=== PATIENT | male | born 2000 | race Caucasian/White ===

== ENCOUNTER 2022-06-07 20:15 | Emergency (ER) | payer BC, SELFPAY ==
[2022-06-07 20:21] VITALS: BP 133/80; PULSE 85; RESP 20; TEMP 37.3; O2SAT 98
--- NOTE | 2022-06-07 21:00 | DI.CT_ITS ---
Exam(s) CT ABDOMEN PELVIS W EXAM: CT ABDOMEN PELVIS W CLINICAL HISTORY: lower abdominal pain, hematochezia TECHNIQUE: Imaging Protocol: Axial computed tomography images with coronal and sagittal reformatted images were created and reviewed CONTRAST MATERIAL: Intravenous: Omnipaque 350 Contrast volume:100 mL Oral: No COMPARISON: No exams were available for comparison FINDINGS: There is a mottled enhancement pattern of both the liver and spleen which is likely secondary to bonifacio us and scan timing. ABDOMEN: Lung Bases: Normal where visualized. Liver: Normal density. No measurable mass. Portal, Superior Mesenteric, and Splenic Veins: Unremarkable. Gallbladder and Biliary Tract: No radiodense calculus or dilation. Pancreas: Normal density, no abnormal calcifications or inflammatory process. Spleen: Normal. Adrenals: No masses seen. Kidneys: Normal size, contour and axis. No radiodense stones or obstructive uropathy. No masses seen. Abdominal Aorta: Abdominal portion non-dilated. Bowel: No obstruction or bowel wall thickening. Appendix is unremarkable. Peritoneal Cavity: There is a trace amount of free fluid in the pelvis. No free air. Lymph Nodes: Within normal limits. Bones: Within normal limits for the patient's age. Soft Tissues: Unremarkable. PELVIS: Bladder: Symmetric distention, no gross wall thickening. Reproductive Organs: Unremarkable as visualized. Lymph Nodes: Within normal limits. Bones: Within normal limits for the patient's age. IMPRESSION: 1. Trace amount of free fluid in the pelvis. 2. No evidence of bowel obstruction or inflammation. Normal appendix. RADIATION DOSE DELIVERED: 746.48mGy.cm Total DLP DATA REPOSITORY: All CT scans at this facility are submitted to the National Radiology Data Registry (NRDR) Dose Index Registry (DIR) with the [employer] (ACR). RADIATION OPTIMIZATION: All CT scans at this facility use at least one of these dose optimization te chniques: automated exposure control; mA and/or kV adjustment per patient size (includes targeted exa ms where dose is matched to clinical indication); or iterative reconstruction.
[2022-06-07 21:08] LABS: Abs Immature Grans 0.04 10^3/uL (0.0-0.06); Absolute Basophil Count 0.06 10^3/uL (0.0-0.2); Absolute Eosinophil Count 0.11 10^3/uL (0.0-0.7); Absolute Monocyte Count 0.88 10^3/uL (0.1-0.8); Absolute Neutrophil Count 6.29 10^3/uL (1.2-6.7); Basophils % 0.5; Eosinophils % 0.9; HGB 15.9 g/dL (13.5-17.5); Immature Grans % 0.3; Lymphocytes % 37.4; MCH 31.3 pg (27.0-33.0); MCHC 33.8 % (32.0-36.0); MCV 93 fL (80-95); MPV 10.5 fL (8.0-11.0); Monocytes % 7.5; Neutrophils % 53.4; Platelet Count 268 10^3/uL (130-400); RBC 5.08 10^6/uL (4.36-5.78); RDW 12.1 % (11.8-14.1); RDW-SD 41.8 fL; WBC 11.78 10^3/uL (4.4-10.8)
[2022-06-07 21:09] LABS: Absolute Lymphocyte Count 4.41 10^3/uL (1.2-3.4)
[2022-06-07 21:21] LABS: INR 1.1 (0.9-1.1); PTT Activated 26.5 sec (21.0-27.5)
[2022-06-07 21:22] LABS: ALT 27 U/L (16-63); AST 25 U/L (15-37); Alkaline Phosphatase 55 U/L (46-116); Anion Gap 8.2 mmol/L (3-11); BUN 13 mg/dL (7-18); Bilirubin, Total 1.1 mg/dL (0.2-1.0); CO2 29.8 mmol/L (21.0-32.0); CREATININE 1.2 mg/dL (0.70-1.30); Calcium 9.6 mg/dL (8.5-10.1); Chloride 104 mmol/L (98-107); Estimated GFR 88.24 (mL/min/1.73m2); Glucose 77 mg/dL (74-106); Potassium 3.5 mmol/L (3.5-5.1); Sodium 142 mmol/L (136-145)
--- NOTE | 2022-06-07 21:40 | ED.GENADUL_ITS ---
Discharge Plan Disposition Patient Disposition: Home Condition: Improving Discharge Details Clinical Impression: Bloody diarrhea Primary Care Provider: Teofilo Paredes ED Provider: Michael Winters Home Meds and New Rx's Prescriptions: New ciprofloxacin HCl 500 mg tablet 500 mg PO BID 3 Days Qty: 6 0RF dicyclomine 20 mg tablet 20 mg PO BID PRN (Reason: cramps) 5 Days Qty: 10 0RF Discharge Instructions Instructions: Acute Diarrhea (ED) Additional Instructions: You should consider yourself to have an IV dye contrast allergy as we discussed. Please take antibiotics as prescribed until finished. May use the Bentyl as needed for cramps. We will refer you to the general surgery office for an outpatient consultation. Return to develop a fever, increasing pain, vomiting, or any other acute concerns. Home to rest this evening. Medical Decision Making Otherwise healthy 21-year-old male presents from home with 2 to 3 days of crampy lower abdominal pain development of loose stool and hematochezia. He has not had a fever, no vomiting. He arrives with normal vital signs and is well- appearing. Exam does reveal guaiac positive mucus and lower abdominal tenderness. Consider colitis, diverticulitis, traveler's/complicated diarrhea. Referred for laboratory testing and CT imaging. White blood cell count 11, hematocrit 47, platelets 268. INR is 1.1. Basic chemistries show sodium 142, potassium 3.5, chloride 104, bicarb 29, BUN 13, creatinine 1.2, AST 25, ALT 27, total bili of 1.1. CT imaging obtained. Following administration of IV contrast patient developed itching and a patchy, blanching, erythematous rash on his chest and neck. He was given Benadryl, Solu-Medrol, and Pepcid. I would consider this to be an allergic reaction to IV contrast and the patient was informed of such. Following the contrast reaction the patient was observed. His CT exam reveals trace pelvic free fluid. No other notable findings. Please see the formal report. Given the patient's findings, this is most consistent with a complicated diarrhea. I will treat him with a course of ciprofloxacin. We will refer to general surgery for follow-up and consideration of colonoscopy if symptoms persist. HPI General Mode of arrival: ambulatory . Date/Time Provider Initiated Documentation: 06/07/22 20:16 . Limitations to Documentation: no limitations . Information obtained by: patient . History of Present Illness 21 year old M presents to the emergency department with the chief complaint of Crampy lower abdominal pain for 2 to 3 days with bloody stool, described as moderate, and is localized to the abdomen. Patient reports no radiation. Patient started experiencing this day(s) and it has been intermittent. No relieving factors improve symptom(s), No exacerbating factors reported . Patient notes denies fever/chills, nausea/vomiting and syncope. Patient did receive the following treatments prior to arrival, none Related Data Home Medications Medication Instructions Recorded Confirmed ciprofloxacin HCl 500 mg tablet 500 mg PO BID 3 days #6 tabs 06/07/22 dicyclomine 20 mg tablet 20 mg PO BID PRN cramps 5 days #10 06/07/22 tabs Previous Rx's Medication Instructions Recorded ciprofloxacin HCl 500 mg tablet 500 mg PO BID 3 days #6 tabs 06/07/22 dicyclomine 20 mg tablet 20 mg PO BID PRN cramps 5 days #10 06/07/22 tabs Allergies Allergy/AdvReac Type Severity Reaction Status Date / Time IV Contrast AdvReac Intermediate Uncoded 06/07/22 22:12 General Stated Complaint: GI Bleed LESA: 3 Review of Systems Narrative: 6 systems reviewed and otherwise negative PFSH All Active Problems (Updated 06/07/22 @ 22:31 by Michael Winters MD) Bloody diarrhea (Acute) Social History Smoking/Tobacco Use Status: Never Smoking risk assessment performed?: Yes Alcohol Intake: never Drug use: Socially Substance use type: marijuana Do you feel safe at home: Yes Do you feel safe in your relationship?: Yes Exam Narrative Exam Narrative: GEN: awake, alert, oriented 3. Pleasant, well groomed, interactive. HEAD: Normocephalic, atraumatic ENT: Mucous membranes moist, oropharynx unremarkable, External ear exam unremarkable EYES: PERRL, EOMI NECK: Full ROM, no ANMOL, no menigismus CHEST/RESP: Nontender, clear to auscultation bilateral, no wheeze/rhonchi/rales CARDIOVASCULAR: RRR, no murmur, rub kourtney. 2+ Rad pulse bilateral ABDOMEN: Soft, tender in the lower quadrants with discrete rebound present left, no mass. +Bowel sounds. Normal rectal tone, no masses or hemorrhoids, mucus that is guaiac positive. EXT: Full ROM, no edema, no rash Neuro: Grossly normal neurologic exam, conversant, interactive. Psych: Speech fluent, thoughts congruent, affect normal Course Vital Signs Vital signs: Vital Signs Temperature 37.3 C 06/07/22 20:21 Pulse 85 06/07/22 20:21 Respiratory Rate 20 06/07/22 20:21 Blood Pressure 133/80 06/07/22 20:21 Pulse Oximetry 98 06/07/22 20:21 Temperature 37.3 C 06/07/22 20:21 Pulse 85 06/07/22 20:21 Respiratory Rate 20 06/07/22 20:21 Respiratory Effort 06/07/22 20:31 Blood Pressure 133/80 06/07/22 20:21 Blood Pressure Position Sitting 06/07/22 20:21 Pulse Oximetry 98 06/07/22 20:21 Oxygen Delivery Method Room Air 06/07/22 20:21 Oxygen Flow Rate 0 06/07/22 20:21 Pain Level 8 06/07/22 20:21 Lab/Test Results Lab/Test Results: Laboratory Tests Range/Units 06/07/22 06/07/22 06/07/22 20:58 20:58 20:58 WBC (4.4-10.8) 10^3/uL 11.78 H RBC (4.36-5.78) 10^6/uL 5.08 Hgb (13.5-17.5) g/dL 15.9 Hct (40.0-50.0) % 47.0 MCV (80-95) fL 93 MCH (27.0-33.0) pg 31.3 MCHC (32.0-36.0) % 33.8 RDW (11.8-14.1) % 12.1 Plt Count (130-400) 10^3/uL 268 MPV (8.0-11.0) fL 10.5 Immature Gran % 0.3 Neutrophils % 53.4 Lymphocytes % 37.4 Monocytes % 7.5 Eosinophils % 0.9 Basophils % 0.5 Nucleated RBC % (0.0-0.3) % 0.0 Absolute Neutrophils (1.2-6.7) 10^3/uL 6.29 Absolute Lymphocytes (1.2-3.4) 10^3/uL 4.41 H Absolute Monocytes (0.1-0.8) 10^3/uL 0.88 H Absolute Eosinophils (0.0-0.7) 10^3/uL 0.11 Absolute Basophils (0.0-0.2) 10^3/uL 0.06 PT (9.3-11.0) sec 11.0 INR (0.9-1.1) 1.1 APTT (21.0-27.5) sec 26.5 Sodium (136-145) mmol/L 142 Potassium (3.5-5.1) mmol/L 3.5 Chloride (98-107) mmol/L 104 Carbon Dioxide (21.0-32.0) mmol/L 29.8 Anion Gap (3-11) mmol/L 8.2 BUN (7-18) mg/dL 13 Creatinine (0.70-1.30) mg/dL 1.2 Est GFR (CKD-EPI 2020) (mL/min/1.73m2) 88.24 Glucose (74-106) mg/dL 77 Calcium (8.5-10.1) mg/dL 9.6 Total Bilirubin (0.2-1.0) mg/dL 1.1 H AST (15-37) U/L 25 ALT (16-63) U/L 27 Alkaline Phosphatase (46-116) U/L 55 Total Protein (6.4-8.2) g/dL 8.0 Albumin (3.4-5.0) g/dL 5.0
[2022-06-07] MEDS: Omnipaque 350 MG/ML 100 ML BTL IJ (21:55)
[2022-06-07] MEDS: Normal Saline - Diluent 50 ML VIAL IJ (21:55)
[2022-06-07] MEDS: Normal Saline Flush 10 ML SYR IVP (21:56)
[2022-06-07 22:05] VITALS: BP 144/95; PULSE 63; PULSE 79; RESP 10; O2SAT 100
[2022-06-07 22:06] VITALS: PULSE 70; RESP 8; O2SAT 99
[2022-06-07] MEDS: Famotidine 20 MG/2 ML VIAL IVP (22:06)
[2022-06-07] MEDS: methylPREDNISolone SUCC 125 MG VIAL IVP (22:06)
[2022-06-07] MEDS: diphenhydrAMINE 50 MG/ML VIAL IVP (22:06)
--- NOTE | 2022-06-07 22:09 | NUR.NOTE ---
Pt appeared to have an allergic rxn to CT Contrast, Response to CT by ED RN and ED , LIANA
--- NOTE | 2022-06-07 22:20 | DI.VRAD_ITS ---
PROCEDURE INFORMATION: Exam: CT Abdomen And Pelvis With Contrast Exam date and time: 06/07/2022 9:52 PM Age: 21 years old Clinical indication: Other: Lower abdominal pain, hematochezia TECHNIQUE: Imaging protocol: Computed tomography of the abdomen and pelvis with contrast. Radiation optimization: All CT scans at this facility use at least one of these dose optimization techniques: automated exposure control; mA and/or kV adjustment per patient size (includes targeted exams where dose is matched to clinical indication); or iterative reconstruction. Contrast material: OMNIPAQUE 350; Contrast volume: 100 ml; Contrast route: IV; COMPARISON: No relevant prior studies available. FINDINGS: Liver: Normal. No mass. Gallbladder and bile ducts: Normal. No calcified stones. No ductal dilation. Pancreas: Normal. No ductal dilation. Spleen: Normal. No splenomegaly. Adrenal glands: Normal. No mass. Kidneys and ureters: Normal. No hydronephrosis. Stomach and bowel: Unremarkable. No obstruction. No mucosal thickening. Appendix: Normal appendix. Intraperitoneal space: Trace pelvic free fluid. No intraperitoneal free air. Vasculature: Unremarkable. No abdominal aortic aneurysm. Lymph nodes: Unremarkable. No enlarged lymph nodes. Urinary bladder: Unremarkable as visualized. Reproductive: Unremarkable as visualized. Bones/joints: Unremarkable. No acute fracture. Soft tissues: Unremarkable. IMPRESSION: Trace pelvic free fluid. Without other evidence of bowel injury or inflammatory change, this may be a normal finding. Dictated and Authenticated by: Marcio Mejia MD. Ordering:MARÍA ELENA Rodriguez MD
[2022-06-07 23:30] VITALS: BP 117/58; PULSE 78; RESP 16; TEMP 36.6; O2SAT 98
[2022-06-07] MEDS: Ciprofloxacin 500 MG TAB PO (23:37)
== END 2022-06-08 00:45 | disposition home or self-care (01) ==
PROVIDERS: Emergency Provider Emergency Medicine; PCP Nurse Practitioner Family
DX: K92.1 Melena (principal); L29.9 Pruritus, unspecified
CPT/HCPCS: 80053; 96374; 96375; 99285; 74177; 85025; 85610; 85730; 99284; J1200; J2930; J3490

== ENCOUNTER 2023-06-19 11:31 | Emergency (ER) | payer MEDICAID, SELFPAY ==
[2023-06-19 11:34] VITALS: BP 145/90; PULSE 96; RESP 18; TEMP 36.9; O2SAT 100
--- NOTE | 2023-06-19 12:16 | ED.GENADUL_ITS ---
HPI General Date/Time Provider Initiated Documentation: 06/19/23 12:07 . HPI Narrative: 22-year-old male presents with sore throat cough headache over the last couple of days, daughter recently tested positive for strep throat. Body aches episodes of nausea with a few episodes of vomiting. Now resolved. Related Data Home Medications Medication Instructions Recorded Confirmed penicillin V potassium 500 mg 500 mg PO BID 10 days #20 tabs 06/19/23 tablet Previous Rx's Medication Instructions Recorded penicillin V potassium 500 mg 500 mg PO BID 10 days #20 tabs 06/19/23 tablet Allergies Allergy/AdvReac Type Severity Reaction Status Date / Time red dye Allergy Severe Anaphylaxis Verified 06/19/23 11:36 strawberry Allergy Mild Hives Verified 06/19/23 11:36 IV Contrast AdvReac Intermediate Anaphylaxis Uncoded 06/19/23 11:36 General Stated Complaint: RespSymp LESA: 4 Review of Systems Narrative: Review of Systems Constitutional: negative Eyes: negative ENT: Sore throat Cardiovascular: negative Respiratory: negative Gastrointestinal: Nausea : negative Musculoskeletal: negative Skin: negative Neurologic: negative Psych: negative Exam Narrative Exam Narrative: Physical Examination General: alert, awake, cooperative, resting comfortably, no acute distress HEENT: normocephalic, atraumatic; PERRL, EOM intact, conjunctiva normal; no nasal discharge; moist mucous membranes, large erythematous tonsils bilaterally with exudate, midline uvula, no stridor, normal voice Neck: supple, trachea midline; full ROM Chest: normal to inspection Respiratory: normal respiratory effort, speaking in full sentences Skin: no lesions, rashes or trauma appreciated Neuro: AAOx3, normal speech, moving all extremities Psych: Appropriate mood and affect Course Vital Signs Vital signs: Vital Signs Temperature 36.9 C 06/19/23 11:34 Pulse 96 H 06/19/23 11:34 Respiratory Rate 18 06/19/23 11:34 Blood Pressure 145/90 H 06/19/23 11:34 Pulse Oximetry 100 06/19/23 11:34 Temperature 36.9 C 06/19/23 11:34 Temperature Source Skin 06/19/23 11:34 Pulse 96 H 06/19/23 11:34 Respiratory Rate 18 06/19/23 11:34 Respiratory Effort Normal, Non-Labored 06/19/23 11:43 Respiratory Depth Normal 06/19/23 11:43 Blood Pressure 145/90 H 06/19/23 11:34 Blood Pressure Position Sitting 06/19/23 11:34 Pulse Oximetry 100 06/19/23 11:34 Oxygen Delivery Method Room Air 06/19/23 11:34 Oxygen Flow Rate 0 06/19/23 11:34 Pain Level 8 06/19/23 11:34 Lab/Test Results Lab/Test Results: 06/19/23 11:35 Tonsil - Not Specified Group A Streptococcus Culture - Pending POC Strep Test-LILLIE(Rapid) Start: 06/19/23 11:39 Freq: .Rapid Strep Test Status: Active Protocol: Document 06/19/23 11:42 NMARIKA (Rec: 06/19/23 11:42 [email or web address] [id number]) Strep test-LILLIE(Rapid)-POC POC-Strep test-LILLIE (Rapid) Negative POC-Strep test-LILLIE (Rapid) Negative Medical Decision Making 22-year-old male presents with sore throat body aches fatigue nausea, strep positive daughter at home, negative strep COVID and influenza swab here however large erythematous indurated tonsils with exudate bilaterally, midline uvula tolerating secretions no stridor normal voice no respiratory distress. Appears well-hydrated nontoxic. Despite negative strep swab given clinical appearance and history we will treat empirically will send for culture. Will also treat with dexamethasone. No evidence of deep space infection of head or neck. Low suspicion for pneumonia. Low suspicion for intra-abdominal process given history and physical. Home care instructions return precautions given. Quality:SDOH Health Related Social Needs: No Data to Display PFSH All Active Problems (Updated 06/19/23 @ 12:18 by Santos Mejía MD) Pharyngitis (Acute) Social History Smoking/Tobacco Use Status: Never Smoking risk assessment performed?: Yes Alcohol Intake: never Drug use: Socially Substance use type: marijuana Do you feel safe at home: Yes Do you feel safe in your relationship?: Yes Discharge Plan Disposition Patient Disposition: Home Condition: Stable Discharge Details Clinical Impression: Pharyngitis Primary Care Provider: Teofilo Paredes ED Provider: Santos Mejía Home Meds and New Rx's Prescriptions: New penicillin V potassium 500 mg tablet 500 mg PO BID 10 Days Qty: 20 0RF Discharge Instructions Instructions: Pharyngitis (ED)
[2023-06-19] MEDS: Dexamethasone 10 MG/ML VIAL PO (12:20)
[2023-06-19] MEDS: Penicillin V POTASSIUM 500 MG TAB PO (12:21)
== END 2023-06-19 12:21 | disposition home or self-care (01) ==
PROVIDERS: Emergency Provider Emergency Medicine; PCP Nurse Practitioner Family
DX: J02.9 Acute pharyngitis, unspecified (principal); Z11.52 Encounter for screening for COVID-19
CPT/HCPCS: 87426; 87880; 99283; 87081; J1100